=== PATIENT | female | born 1980 | race Caucasian/White ===

== ENCOUNTER 2024-11-15 13:26 | Emergency (ER) | payer MEDICAID ==
[~2024-11-15] VITALS: Ht 152.4 cm; Wt 113.5 kg
[2024-11-15 13:30] VITALS: TEMP 97.8
[2024-11-15 14:07] LABS: BILIRUBIN,URINE NEGATIVE (Neg); CLARITY,URINE CLEAR (Clear); COLOR,URINE YELLOW (Yellow); GLUCOSE, URINE NEGATIVE (Neg); KETONES,URINE NEGATIVE (Neg); LEUKOCYTE ESTERASE ,URINE SMALL (Neg); NITRITES, URINE NEGATIVE (Neg); OCCULT BLOOD,URINE NEGATIVE (Neg); PROTEIN,URINE NEGATIVE (Neg)
[2024-11-15 14:09] LABS: URINE HCG NEGATIVE (NEG)
[2024-11-15 14:24] LABS: UA COLLECTION TYPE CLN CATCH MIDSTREAM
[2024-11-15 14:25] LABS: BACTERIA,URINE FEW /HPF (Neg); MUCUS STRANDS FEW /LPF (Neg); RBC,URINE NONE SEEN /HPF (0-2); SQUAMOUS EPITHELIAL CELL,UR MODERATE /LPF (FEW); WBC,URINE 0-4 /HPF (0-4)
[2024-11-15 14:49] LABS: ALANINE AMINOTRANSFERASE 63 U/L (12-78); ALBUMIN 3.3 G/DL (3.4-5.0); ALBUMIN/GLOBULIN RATIO 0.9 (1.1-1.5); ALKALINE PHOSPHATASE 65 IU/L (46-116); ANION GAP 4 (8-16); ASPARTATE AMINO TRANSFERASE 40 U/L (10-37); BILIRUBIN,TOTAL 0.3 MG/DL (0.1-1.0); BLOOD UREA NITROGEN 13 MG/DL (7-18); BUN/CREATININE RATIO 16.5 (10.0-20.0); CALCIUM 8.6 MG/DL (8.5-10.1); CHLORIDE 102 MMOL/L (99-107); CREATININE 0.79 MG/DL (0.40-0.90); GLUCOSE 112 MG/DL (70-104); LIPASE 33 U/L (16-77); POTASSIUM 4.2 MMOL/L (3.5-5.1); SODIUM 137 MMOL/L (135-145); TOTAL CARBON DIOXIDE 30.9 MMOL/L (24-32); eCRCL 65 ML/MIN; eGFR 79 ML/MIN
[2024-11-15] MEDS: normal saline 1000ml 1,000 ML IV ONE (14:51)
[2024-11-15] MEDS: ketorolac trometh 30MG/ML vial 30 MG/ML VIAL IV ONE (14:52)
[2024-11-15] MEDS: ondansetron/PF 4mg/2ml inj IV ONE (14:52)
[2024-11-15] MEDS: HYDROcodone/acetaminophen 5mg/325mg tablet PO ONE (14:52)
[2024-11-15 15:11] LABS: BASOPHILS % (AUTO) 0.3 % (0-1); EOSINOPHILS # (AUTO) 0.3 X10'3 (0-0.9); EOSINOPHILS % (AUTO) 2.8 % (0-6); HEMATOCRIT 46.2 % (35.0-45.0); HEMOGLOBIN 15.4 g/dl (12.0-16.0); LYMPHOCYTES # (AUTO) 1.7 X10'3 (1.1-4.8); LYMPHOCYTES % (AUTO) 17.1 % (21-51); MEAN CORPUSCULAR HGB CONC 33.2 g/dL (33.0-36.5); MEAN CORPUSCULAR VOLUME 90.4 FL (78-98); MEAN PLATELET VOLUME 8.1 FL (7.4-10.4); MONOCYTES # (AUTO) 0.9 X10'3 (0-0.9); MONOCYTES % (AUTO) 9.6 % (2-12); NEUTROPHILS # (AUTO) 6.8 X10'3 (1.8-7.7); NEUTROPHILS % (AUTO) 70.2 % (42-75); PLATELET COUNT 232 X10'3 (140-440); RED BLOOD COUNT 5.11 X10'6 (4.20-5.60); RED CELL DISTRIBUTION WIDTH 15.3 % (11.5-14.5); WHITE BLOOD COUNT 9.6 X10'3 (4.5-11.0)
[2024-11-15 15:33] LABS: URINE AMPHETAMINE SCREEN NEGATIVE (Neg); URINE BARBITUATE SCREEN NEGATIVE (Neg); URINE BENZODIAZEPINES SCREEN NEGATIVE (Neg); URINE CANNABINOID SCREEN NEGATIVE (Neg); URINE COCAINE SCREEN NEGATIVE (Neg); URINE METHADONE SCREEN NEGATIVE (Neg); URINE OPIATE SCREEN NEGATIVE (Neg); URINE PHENCYCLIDINE SCREEN NEGATIVE (Neg)
[2024-11-15] MEDS ORDERED: CefTRIAXone 2gm/D5W 50ml BAG 50 ML IV ONE (16:10)
[2024-11-15] MEDS ORDERED: CEPH-585 PO (16:31)
[2024-11-15] MEDS: CefTRIAXone 1000mg IM Kit (w/lidocaine diluent) IM ONE (16:37)
[2024-11-15 16:48] VITALS: BP 118/81; PULSE 80; RESP 18; O2SAT 96
== END 2024-11-15 16:49 | disposition home or self-care (01) ==
LOC: ER 13:27
DX: N39.0 Urinary tract infection, site not specified (principal); R10.84 Generalized abdominal pain; R11.0 Nausea; F15.90 Other stimulant use, unspecified, uncomplicated
CPT/HCPCS: 36415; 76700; 80053; 80305; 81001; 81025; 83690; 85025; 87088; 96361; 96372; 96374; 96375; 99285; J0696; J1885; J2405; J7030

== ENCOUNTER 2025-01-13 19:32 | Emergency (ER) | payer MEDICAID ==
[~2025-01-13] VITALS: Ht 152.4 cm; Wt 109.1 kg
[2025-01-13] MEDS: acetaminophen 325mg tablet PO ONE (20:30)
[2025-01-13 20:45] LABS: BILIRUBIN,URINE NEGATIVE (Neg); CLARITY,URINE CLEAR (Clear); COLOR,URINE YELLOW (Yellow); GLUCOSE, URINE NEGATIVE (Neg); KETONES,URINE NEGATIVE (Neg); LEUKOCYTE ESTERASE ,URINE NEGATIVE (Neg); NITRITES, URINE NEGATIVE (Neg); OCCULT BLOOD,URINE NEGATIVE (Neg); PROTEIN,URINE NEGATIVE (Neg); UROBILINOGEN,URINE 0.2 E.U/dL (0.2-1.0)
[2025-01-13 20:46] LABS: UA COLLECTION TYPE CLN CATCH MIDSTREAM
[2025-01-13 21:38] LABS: BASOPHILS % (AUTO) 0.3 % (0-1); EOSINOPHILS # (AUTO) 0.1 X10'3 (0-0.9); EOSINOPHILS % (AUTO) 0.9 % (0-6); HEMATOCRIT 43.4 % (35.0-45.0); HEMOGLOBIN 14.6 g/dl (12.0-16.0); LYMPHOCYTES # (AUTO) 1.7 X10'3 (1.1-4.8); LYMPHOCYTES % (AUTO) 11.9 % (21-51); MEAN CORPUSCULAR HEMOGLOBIN 29.9 PG (27.0-31.0); MEAN CORPUSCULAR HGB CONC 33.7 g/dL (33.0-36.5); MEAN CORPUSCULAR VOLUME 88.8 FL (78-98); MEAN PLATELET VOLUME 8.4 FL (7.4-10.4); MONOCYTES # (AUTO) 0.8 X10'3 (0-0.9); MONOCYTES % (AUTO) 5.6 % (2-12); NEUTROPHILS # (AUTO) 11.3 X10'3 (1.8-7.7); NEUTROPHILS % (AUTO) 81.3 % (42-75); PLATELET COUNT 272 X10'3 (140-440); RED BLOOD COUNT 4.89 X10'6 (4.20-5.60); RED CELL DISTRIBUTION WIDTH 15.5 % (11.5-14.5); WHITE BLOOD COUNT 13.8 X10'3 (4.5-11.0)
[2025-01-13 21:51] LABS: ALANINE AMINOTRANSFERASE 87 U/L (12-78); ALBUMIN 3.5 G/DL (3.4-5.0); ALBUMIN/GLOBULIN RATIO 0.9 (1.1-1.5); ALKALINE PHOSPHATASE 72 IU/L (46-116); ANION GAP 8 (8-16); ASPARTATE AMINO TRANSFERASE 33 U/L (10-37); BILIRUBIN,TOTAL 0.4 MG/DL (0.1-1.0); BLOOD UREA NITROGEN 9 MG/DL (7-18); BUN/CREATININE RATIO 10.7 (10.0-20.0); CALCIUM 8.7 MG/DL (8.5-10.1); CHLORIDE 105 MMOL/L (99-107); CREATININE 0.84 MG/DL (0.40-0.90); GLUCOSE 102 MG/DL (70-104); POTASSIUM 3.8 MMOL/L (3.5-5.1); SODIUM 139 MMOL/L (135-145); TOTAL CARBON DIOXIDE 26.2 MMOL/L (24-32); TOTAL PROTEIN 7.2 G/DL (6.4-8.2); eCRCL 61 ML/MIN; eGFR 73 ML/MIN
[2025-01-13] MEDS ORDERED: CEPH-585 PO (22:56)
[2025-01-13] MEDS: cephalexin 250mg capsule PO ONE (23:16)
[2025-01-13 23:18] VITALS: BP 107/61; PULSE 88; RESP 16; TEMP 98; O2SAT 100
== END 2025-01-13 23:21 | disposition home or self-care (01) ==
LOC: ER 19:33
DX: R50.9 Fever, unspecified (principal); L97.518 Non-pressure chronic ulcer of other part of right foot with other specified severity; L03.115 Cellulitis of right lower limb; Z20.822 Contact with and (suspected) exposure to COVID-19
CPT/HCPCS: 36415; 80053; 81003; 84145; 85025; 87811; 99283

== ENCOUNTER 2025-03-04 10:26 | Outpatient (CLI) | payer MEDICAID ==
--- NOTE | 2025-03-04 12:15 | RADIOLOGY REPORT ---
EXAM: MR MRI LOWER EXTREMITY RIGHT knee INDICATION: PAIN IN RIGHT KNEE TECHNIQUE: Multiplanar and multisequence MR imaging of the right knee was performed in the absence of gadolinium contrast. COMPARISON: None FINDINGS: The medial meniscus is intact. Lateral meniscus shows absent body and anterior horn. There is thinning of the hyaline cartilage surf aces of the overlying lateral femoral condyle and underlying lateral tibial plateau Posterior cruciate ligament morphologically normal. Anterior cruciate ligament is frayed in appearan ce and increased in signal intensity probably due to prior tear with internal mucinous degenerative s ignal Collateral ligaments intact Quadriceps and patellar tendons intact Trace joint effusion Hyaline cartilage surfaces covering the patellofemoral joint thin with lateral subluxation. IMPRESSION: 1. Absence of visualization of the body and anterior horn of the lateral meniscus. This is either pos tsurgical or due to a degenerative tear. There is a grade 3 chondromalacia of the overlying lateral f emoral condyle and underlying lateral tibial plateau 2. Degenerative tear involving the anterior cruciate ligament probably old 3. 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
== END 2025-03-04 23:59 | disposition home or self-care (01) ==
LOC: MRI 10:26
PROVIDERS: ATTEND Family Medicine
DX: M94.261 Chondromalacia, right knee (principal); M25.561 Pain in right knee
CPT/HCPCS: 73721

== ENCOUNTER 2025-03-20 22:02 | Emergency (ER) | payer MEDICAID ==
[~2025-03-20] VITALS: Ht 152.4 cm; Wt 235.0 kg
[2025-03-20 22:07] VITALS: TEMP 98.1
--- NOTE | 2025-03-20 22:13 | ELECTROCARDIOGRAPH REPORT ---
[facility] Test Date: 2025-03-20 Test Time: 22:11:09 Pat Name: BENITA BOOTHE Department: [facility]- Patient ID: [facility]-[id number] Room: Gender: F Instructor Pilot: : 1980 Requested By: TOO GOODEN Order Number: [id number] Reading MD: Dr. Too Gooden Measurements Intervals [place] Rate: 81 P: 41 PA: 158 QRS: 6 QRSD: 83 T: 41 QT: 362 QTc: 421 Interpretive Statements Sinus rhythm Probable left atrial enlargement Baseline wander in lead(s) II Electronically Signed On 03-21-2025 0:41:[address] Too Gooden Please click the below link to view image of tracing.
[2025-03-20 22:18] VITALS: BP 118/74
[2025-03-20 22:41] LABS: BASOPHILS # (AUTO) 0.1 X10'3 (0-0.2); EOSINOPHILS # (AUTO) 0.4 X10'3 (0-0.9); EOSINOPHILS % (AUTO) 4.1 % (0-6); HEMATOCRIT 41.7 % (35.0-45.0); HEMOGLOBIN 14.3 g/dl (12.0-16.0); LYMPHOCYTES % (AUTO) 32.4 % (21-51); MEAN CORPUSCULAR HEMOGLOBIN 31.7 PG (27.0-31.0); MEAN CORPUSCULAR HGB CONC 34.4 g/dL (33.0-36.5); MEAN CORPUSCULAR VOLUME 92.3 FL (78-98); MEAN PLATELET VOLUME 8.9 FL (7.4-10.4); MONOCYTES # (AUTO) 0.6 X10'3 (0-0.9); MONOCYTES % (AUTO) 6.9 % (2-12); NEUTROPHILS # (AUTO) 5.2 X10'3 (1.8-7.7); NEUTROPHILS % (AUTO) 55.6 % (42-75); PLATELET COUNT 239 X10'3 (140-440); RED BLOOD COUNT 4.51 X10'6 (4.20-5.60); RED CELL DISTRIBUTION WIDTH 14.8 % (11.5-14.5); WHITE BLOOD COUNT 9.3 X10'3 (4.5-11.0)
[2025-03-20 23:05] LABS: ALBUMIN 3.5 G/DL (3.4-5.0); ANION GAP 10 (8-16); BLOOD UREA NITROGEN 13 MG/DL (7-18); BUN/CREATININE RATIO 12.4 (10.0-20.0); CALCIUM 8.6 MG/DL (8.5-10.1); CHLORIDE 106 MMOL/L (99-107); CREATININE 1.05 MG/DL (0.40-0.90); GLUCOSE 98 MG/DL (70-104); POTASSIUM 3.4 MMOL/L (3.5-5.1); PRO BRAIN NATRIURETIC PEPTIDE 42 PG/ML (0-125); SODIUM 141 MMOL/L (135-145); TOTAL CARBON DIOXIDE 24.6 MMOL/L (24-32); eCRCL 49 ML/MIN; eGFR 57 ML/MIN
[2025-03-20] MEDS: ketorolac trometh 30MG/ML vial 30 MG/ML VIAL IM ONE (23:10)
--- NOTE | 2025-03-20 23:29 | Physician Documentation ---
History of Present Illness ~ Chief Complaint: Chest Pain Stated Complaint: POSSIBLE KIDNEY/CHEST PAIN Time Seen by MD: 22:20 Primary Medical Doctor: none Mode of Arrival: Ambulatory HPI 44-year-old female presents to the ED with a complaint of left chest pain and left back pain with the acute onset tonight. Denies any injury reports cigarette smoking. Denies any nausea vomiting or shortness of breath. Denies any jaw pain or any other associated cardiac problem. Denies any history of cardiac pathology Day of Onset: Mar 20, 2025 Tetanus within 5 Years?: Yes Allergies: Uncoded Allergies: PENICILLIN (Allergy, Unknown, throat closes, 11/15/24) Active Prescriptions See Medication Reconciliation Form. Review of Systems All Other Systems at this time: Reviewed and Negative ROS As stated above in the HPI, otherwise all systems are reviewed and negative. Physical Exam Vital Signs: Temperature: 98.1, Source: Oral, Heart Rate: 81, Respiratory Rate: 16, BP: 118/74, Pulse Oximetry: 99, Weight: 235.000 Physical Exam General: Alert, no apparent distress. Respiratory: Lungs clear, no respiratory distress. Chest: No accessory muscle use. Clear to the left intercostal is be a palpation Cardiovascular: Regular rate and rhythm, no murmurs. Psychiatric: Normal mood and affect. Skin: Normal color, warm and dry. No edema, no ecchymosis. Progress Results/Orders Results/Orders Completed Orders - CAIN SANCHEZ NP Ketorolac Trometh 30mg/Ml Vial (Toradol (03/20/25 22:50) Medications Received in ER Medications (Trade) Dose Ordered Sig/Jorge Luis Route PRN Reason Start Time Stop Time Status Last Admin Dose Admin (Toradol inj. 30mg/ml) 30 mg ONCE ONCE IM 03/20/25 22:50 03/20/25 22:51 DC 03/20/25 23:10 30 MG Vital Signs 03/20/25 03/20/25 03/20/25 03/20/25 22:07 22:11 22:18 23:10 Temp 98.1 Pulse 84 81 Resp 16 16 18 16 B/P (MAP) 144/80 118/74 (89) Pulse Ox 99 99 Laboratory Tests Test 03/20/25 22:28 White Blood Count 9.3 Red Blood Count 4.51 Hemoglobin 14.3 Hematocrit 41.7 Mean Corpuscular Volume 92.3 Mean Corpuscular Hemoglobin 31.7 H Mean Corpuscular Hemoglobin Concent 34.4 Red Cell Distribution Width 14.8 H Platelet Count 239 Mean Platelet Volume 8.9 Neutrophils (%) (Auto) 55.6 Lymphocytes (%) (Auto) 32.4 Monocytes (%) (Auto) 6.9 Eosinophils (%) (Auto) 4.1 Basophils (%) (Auto) 1.0 Neutrophils # (Auto) 5.2 Lymphocytes # (Auto) 3.0 Monocytes # (Auto) 0.6 Eosinophils # (Auto) 0.4 Basophils # (Auto) 0.1 CBC Comment Sodium Level 141 Potassium Level 3.4 L Chloride Level 106 Carbon Dioxide Level 24.6 Anion Gap 10 Blood Urea Nitrogen 13 Creatinine 1.05 H Estimated GFR/1.73 m2 57 BUN/Creatinine Ratio 12.4 Glucose Level 98 Calcium Level 8.6 Troponin I High Sensitivity 4 Pro-B-Type Natriuretic Peptide 42 Albumin 3.5 Chemistry Comments Medical Decision Making Findings After further discussion with the patient and Toradol administration she while reported improved symptoms overall. I discussed her the importance of smoking cessation.. I do not see any signs of cardiac events at this time. I do not recommend that she follow up in the outpatient setting for further evaluation Differential Dx:Considerations: Include: Chest wall contusion, Flail chest, Myocardial contusion, Pneumothorax, Pulmonary contusion, Rib fracture, Renal contusion, Splenic fracture, Tension pneumothorax, Other Departure Disposition: 01 HOME / SELF CARE / HOMELESS Impression: Primary Impression: Costochondral chest pain Condition: Improved Discharge Instructions: Nonspecific Chest Pain, Adult, Costochondritis Referrals: NO PRIMARY CARE PROVIDER (PCP) Education Educated: Patient Educated regarding: diagnosis Signature Scribe Signature: f Attestation: Scribed for Cain Sanchez Housing Quality Standard Inspector by Cain Shelley NP . 03/20/25 23:41 CAIN SANCHEZ NP Mar 20, 2025 23:29
[2025-03-20 23:41] VITALS: PULSE 89; RESP 17; O2SAT 98
--- NOTE | 2025-03-20 23:43 | RADIOLOGY REPORT ---
Procedure: DI CHEST,SINGLE VIEW 03/20/2025 11:13 PM Indication: CP Comparison: None TECHNIQUE: DI CHEST,SINGLE VIEW FINDINGS/IMPRESSION: Mild prominence of the interstitial markings. Borderline appearance of the cardiomediastinal silhouet te, likely accentuated by technique. No pleural effusion or pneumothorax. No acute osseous abnormalit y.
== END 2025-03-20 23:44 | disposition home or self-care (01) ==
LOC: ER 22:03
DX: R07.1 Chest pain on breathing (principal); M54.9 Dorsalgia, unspecified; R06.02 Shortness of breath
CPT/HCPCS: 36415; 71045; 80048; 83880; 84484; 85025; 93005; 96372; 99285; J1885

== ENCOUNTER 2025-05-03 12:40 | Emergency (ER) | payer MEDICAID ==
[~2025-05-03] VITALS: Ht 152.4 cm; Wt 103.2 kg
[2025-05-03 12:43] VITALS: BP 136/86; PULSE 87; RESP 16; TEMP 98.5; O2SAT 95
--- NOTE | 2025-05-03 15:13 | Physician Documentation ---
History of Present Illness ~ Chief Complaint: Foot pain Stated Complaint: FOOT PAIN/ULCERS Time Seen by MD: 14:23 Primary Medical Doctor: none HPI Patient is a 44-year-old female that reports in the emergency department for evaluation of rash to her right lower extremity on the medial aspect and more significantly swelling and pain to her right lower extremity x1 week. Patient reports that the pain is worse with a rocking and alleviated with rest. Patient reports being prediabetic. Significant past medical history reported at this time. Tetanus witin 5 years: Yes Medication Reconciliation Allergies: Uncoded Allergies: PENICILLIN (Allergy, Unknown, throat closes, 11/15/24) Review of Systems ROS As stated above in the HPI, otherwise all systems are reviewed and negative. Physical Exam Vital Signs: Temperature: 98.5, Source: Temporal, Heart Rate: 87, Respiratory Rate: 16, BP: 136/86, Pulse Oximetry: 95, Weight: 103.180 Oxygen Flow Rate: 0 Physical Exam VITALS: Reviewed and as above. GENERAL: Alert, no apparent distress. HEENT: Normocephalic, atraumatic, PERRL, EOMI, dry mucosa, no erythema RESPIRATORY: Lungs clear, normal breath sounds, no respiratory distress. CHEST: No accessory muscle use, no retractions CV: Regular rate, rhythm, no edema, no murmur, No: JVD GI: Soft, non-tender, bowels sounds present, no rebound, guarding, or rigidity BACK: No CVA tenderness, or swelling MUSCULOSKELETAL No deformities, no edema, pain with examination and flextion or jim right lower extremity. SKIN: Warm and dry, no rash, rash noted to the medial aspect of the right foot NEURO: Oriented x4, No motor or sensory deficit PSYCH: Normal mood and affect, no agitation Progress Results/Orders Results/Orders Orders - CONSUELO PRESSLEYP Vl Venous (05/03/25 17:06) Vl Arterial (05/03/25 17:06) Cult Urine + [address] (05/03/25 17:53) Completed Orders - CONSUELO PRESSLEY [place] [employer] Cbc/Diff (05/03/25 15:54) D-Dimer (05/03/25 15:54) Hcg Serum Ql (05/03/25 15:54) CMP (05/03/25 16:55) Vl Venous (05/03/25 17:06) Vl Arterial (05/03/25 17:06) Ua W/Microscopic, Cult If Ind (05/03/25 17:25) Vital Signs 05/03/25 12:43 Temp 98.5 Pulse 87 Resp 16 B/P (MAP) 136/86 Pulse Ox 95 O2 Flow Rate 0 Laboratory Tests Test 05/03/25 16:31 05/03/25 17:06 05/03/25 17:25 D-Dimer 0.22 D-Dimer Comment Human Chorionic Gonadotropin, Qual Negative White Blood Count 8.5 Red Blood Count 5.17 Hemoglobin 16.3 H Hematocrit 48.2 H Mean Corpuscular Volume 93.2 Mean Corpuscular Hemoglobin 31.5 H Mean Corpuscular Hemoglobin Concent 33.8 Red Cell Distribution Width 13.5 Platelet Count 242 Mean Platelet Volume 8.6 Neutrophils (%) (Auto) 63.3 Lymphocytes (%) (Auto) 26.4 Monocytes (%) (Auto) 6.2 Eosinophils (%) (Auto) 3.5 Basophils (%) (Auto) 0.6 Neutrophils # (Auto) 5.4 Lymphocytes # (Auto) 2.2 Monocytes # (Auto) 0.5 Eosinophils # (Auto) 0.3 Basophils # (Auto) 0.1 CBC Comment Sodium Level 139 Potassium Level 3.9 Chloride Level 104 Carbon Dioxide Level 28.7 Anion Gap 6 L Blood Urea Nitrogen 8 Creatinine 0.93 H Estimated GFR/1.73 m2 65 BUN/Creatinine Ratio 8.6 L Glucose Level 78 Calcium Level 9.1 Total Bilirubin 0.3 Aspartate Amino Transf (AST/SGOT) 17 Alanine Aminotransferase (ALT/SGPT) 20 Alkaline Phosphatase 81 Total Protein 8.3 H Albumin 4.0 Globulin 4.3 Albumin/Globulin Ratio 0.9 L Chemistry Comments Urine Specimen Description Cln catch midstream Urine Color Yellow Urine Clarity Clear Urine pH 6.0 Urine Specific [place] 1.020 Urine Protein Negative Urine Glucose (UA) Negative Urine Ketones Negative Urine Occult Blood Negative Urine Nitrite Negative Urine Bilirubin Negative Urine Urobilinogen 0.2 Urine Leukocyte Esterase Trace H Urine RBC 0-2 Urine WBC 0-4 Urine Squamous Epithelial Cells Few Urine Bacteria Few Urine Mucus None seen Urine Culture Indicated Indicated Volume Urine Centrifuged 10 ml Urine Comment Medical Decision Making Findings He recent rash to the medial aspect of the right foot. For pain and swelling to the right lower extremity times one week. General Diff Dx:Considerations: Include: Abrasion, Contusion, Fracture, Hematoma, Laceration, Malunion, Neurovascular injury, Open fracture, Sprain, Ulcer, Other Departure Impression: Primary Impression: Rash Additional Impressions: Fungal infection Fungal infection of foot Departure Forms: Excuse form Work or School Excused From: Work Excuse beginning now through the following date: May 05, 2025 May Return but still avoid physical Activity from now until: May 05, 2025 Additional Instructions: Please excuse the patient from work for Sunday to return to work on Sunday. Referrals: NO PRIMARY CARE PROVIDER (PCP) Prescriptions Clotrimazole/Betamet Diprop Cream* (Lotrisone Cream*) 15 Gm Tube 1 APPLIC TP BID for 10 Days, #1 EACH Prov: CONSUELO PRESSLEY 05/03/25 Education Educated: Patient Educated regarding: diagnosis, treatment, need for follow up Signature Scribe Signature: A Attestation: Scribed for Consuelo Pressley by JUSTIN Everett . 05/03/25 18:24 CONSUELO PRESSLEY May 03, 2025 15:13
[2025-05-03 16:56] LABS: HCG SERUM QL NEGATIVE
[2025-05-03 17:21] LABS: MEAN PLATELET VOLUME 8.6 FL (7.4-10.4); RED CELL DISTRIBUTION WIDTH 13.5 % (11.5-14.5)
[2025-05-03 17:31] LABS: CREATININE 0.93 MG/DL (0.40-0.90); TOTAL CARBON DIOXIDE 28.7 MMOL/L (24-32); eCRCL 55 ML/MIN; eGFR 65 ML/MIN
[2025-05-03 17:40] LABS: LEUKOCYTE ESTERASE ,URINE TRACE (Neg); NITRITES, URINE NEGATIVE (Neg); OCCULT BLOOD,URINE NEGATIVE (Neg)
[2025-05-03 17:41] LABS: UA COLLECTION TYPE CLN CATCH MIDSTREAM
[2025-05-03 17:53] LABS: MUCUS STRANDS NONE SEEN /LPF (Neg); SQUAMOUS EPITHELIAL CELL,UR FEW /LPF (FEW)
[2025-05-03] MEDS ORDERED: CLOT15CR73 TP (18:19)
--- NOTE | 2025-05-03 18:44 | VASCULAR REPORT ---
RIGHT LOWER EXTREMITY ARTERIAL VASCULAR ULTRASOUND CLINICAL HISTORY: Right lower extremity pain. Nonhealing foot wound. COMPARISON: None TECHNIQUE: Real-time high-resolution grayscale and color Doppler flow imaging with pulsed duplex sono graphy is performed in the lower extremity arterial system with imaging of the femoral-popliteal syst em and interrogation of the dorsalis pedis and posterior tibial arteries at the level of the ankle. FINDINGS: Imaging of the right leg shows no significant atherosclerotic disease and no hemodynamically signific ant stenosis. Peak systolic flow velocities and wave forms are satisfactory throughout the interroga krish segments. IMPRESSION: No hemodynamically significant stenoses or occlusions identified.
--- NOTE | 2025-05-03 18:52 | VASCULAR REPORT ---
CLINICAL HISTORY: Right lower extremity edema and pain TECHNIQUE: Color and duplex doppler imaging of the right lower extremity veins was performed. Vessel compression if possible was also performed. WID: COMPARISON: None FINDINGS: Contralateral left common femoral vein: Normal flow and phasicity. Right common femoral vein: Normal compressibility and flow. Right femoral vein: Normal compressibility and flow. Right popliteal vein: Normal compressibility and flow. Proximal calf veins are normally compressible. IMPRESSION: NO SONOGRAPHIC EVIDENCE FOR DEEP VENOUS THROMBOSIS IN THE RIGHT LOWER EXTREMITY VEINS.
== END 2025-05-03 19:07 | disposition home or self-care (01) ==
LOC: ER 12:42
DX: B35.3 Tinea pedis (principal)
CPT/HCPCS: 36415; 80053; 81001; 84703; 85025; 85379; 87088; 93926; 93971; 99284; A6449

== ENCOUNTER 2025-05-17 18:38 | Emergency (ER) | payer MEDICAID ==
[~2025-05-17] VITALS: Ht 154.9 cm; Wt 100.2 kg
--- NOTE | 2025-05-17 18:53 | Physician Documentation ---
History of Present Illness ~ Chief Complaint: Diarrhea Stated Complaint: NAUSEA/DIARRHEA Time Seen by MD: 18:49 Primary Medical Doctor: none HPI 45-year-old female that presents to the emergency department for evaluation of nausea vomiting diarrhea x2 days. Patient reports that they were eating dinner last night approximately 30 minutes after dinner developed nausea vomiting. Patient reports he has a nausea vomiting has subsided but diarrhea has persisted. Patient denies any other concerns at this time. Medication Reconciliation Allergies: Uncoded Allergies: PENICILLIN (Allergy, Unknown, throat closes, 11/15/24) Discontinued Medications Clotrimazole/Betamet Diprop Cream* (Lotrisone Cream*), 1 APPLIC TP BID Discontinued Reason: Auto Discontinued Review of Systems ROS As stated above in the HPI, otherwise all systems are reviewed and negative. Physical Exam Vital Signs: Temperature: 97.8, Source: Oral, Heart Rate: 89, Respiratory Rate: 16, BP: 114/79, Pulse Oximetry: 97, Weight: 100.200 Oxygen Flow Rate: 0 Physical Exam VITALS: Reviewed and as above. GENERAL: Alert, no apparent distress. HEENT: Normocephalic, atraumatic, PERRL, EOMI, dry mucosa, no erythema RESPIRATORY: Lungs clear, normal breath sounds, no respiratory distress. CHEST: No accessory muscle use, no retractions CV: Regular rate, rhythm, no edema, no murmur, No: JVD GI: Soft, non-tender, bowels sounds present, no rebound, guarding, or rigidity BACK: No CVA tenderness, or swelling MUSCULOSKELETAL No deformities, no edema SKIN: Warm and dry, no rash NEURO: Oriented x4, No motor or sensory deficit PSYCH: Normal mood and affect, no agitation Progress Results/Orders Results/Orders Orders - CONSUELO PRESSLEY [employer] MANAGER Potassium Cl 20meq/15ml Oral (Potassium (05/17/25 20:25) Vital Signs 05/17/25 05/17/25 05/17/25 18:41 19:39 19:40 Temp 97.8 97.8 Pulse 89 88 Resp 16 16 16 B/P (MAP) 114/79 119/76 (90) Pulse Ox 97 96 O2 Flow Rate 0 0 Laboratory Tests Test 05/17/25 18:40 05/17/25 19:08 Urine Specimen Description Cln catch midstream Urine Color Yellow Urine Clarity Clear Urine pH 5.5 Urine Specific [place] >=1.030 Urine Protein Negative Urine Glucose (UA) Negative Urine Ketones Negative Urine Occult Blood Negative Urine Nitrite Negative Urine Bilirubin Negative Urine Urobilinogen 0.2 Urine Leukocyte Esterase Negative Urine Culture Indicated Not ind Volume Urine Centrifuged 10 ml Urine Comment White Blood Count 10.7 Red Blood Count 4.97 Hemoglobin 16.0 Hematocrit 46.8 H Mean Corpuscular Volume 94.2 Mean Corpuscular Hemoglobin 32.1 H Mean Corpuscular Hemoglobin Concent 34.1 Red Cell Distribution Width 13.5 Platelet Count 272 Mean Platelet Volume 8.5 Neutrophils (%) (Auto) 62.8 Lymphocytes (%) (Auto) 28.4 Monocytes (%) (Auto) 5.3 Eosinophils (%) (Auto) 2.9 Basophils (%) (Auto) 0.6 Neutrophils # (Auto) 6.7 Lymphocytes # (Auto) 3.0 Monocytes # (Auto) 0.6 Eosinophils # (Auto) 0.3 Basophils # (Auto) 0.1 CBC Comment Sodium Level 138 Potassium Level 3.2 L Chloride Level 106 Carbon Dioxide Level 19.3 L Anion Gap 13 Blood Urea Nitrogen 10 Creatinine 1.21 H Estimated GFR/1.73 m2 48 BUN/Creatinine Ratio 8.3 L Glucose Level 136 H Calcium Level 8.7 Total Bilirubin 0.3 Aspartate Amino Transf (AST/SGOT) 14 Alanine Aminotransferase (ALT/SGPT) 19 Alkaline Phosphatase 63 Total Protein 7.9 Albumin 3.9 Globulin 4.0 Albumin/Globulin Ratio 1.0 L Lipase 74 Chemistry Comments Medical Decision Making Findings This patient presents with non bloody diarrhea consistent with likely viral enteritis. Doubt invasive bacteria causing diarrhea such as C diff (no recent antibiotics), shiga toxin (non bloody). No recent travel. Patient is not immunocompromised. Diarrhea is non bloody so less likely inflammatory bowel disease. Given history, I have low suspicion for giardia or other parasites. C onsidered, but think unlikely, partial SBO, appendicitis, diverticulitis, other intraabdominal infection. Low suspicion for secondary causes of diarrhea such as hyperadrenergic state, pheo, adrenal crisis, thyrotoxicosis, or sepsis. Patient's potassium was slightly low at 3.1. Patient is a pronounced in his rib been repleted with 20 mEq of oral potassium. Patient will increase fluids. Suggested [id number] Imodium for continued diarrhea. Follow up with primary care provider. Strict return precautions will be provided. Departure Disposition: HOME / SELF CARE / HOMELESS Impression: Primary Impression: Diarrhea Additional Impression: Nausea Condition: Stable Discharge Instructions: Diarrhea, Adult Additional Instructions: This patient presents with non bloody diarrhea consistent with likely viral enteritis. Doubt invasive bacteria causing diarrhea such as C diff (no recent antibiotics), shiga toxin (non bloody). No recent travel. Patient is not immuno compromised. Diarrhea is non bloody so less likely inflammatory bowel disease. Given history, I have low suspicion for giardia or other parasites. Considered, but think unlikely, partial SBO, appendicitis, diverticulitis, other intraabdominal infection. Low suspicion for secondary causes of diarrhea such as hyperadrenergic state, pheo, adrenal crisis, thyrotoxicosis, or sepsis. Patient's potassium was slightly low at 3.1. Patient is a pronounced in his rib been repleted with 20 mEq of oral potassium. Patient will increase fluids. Suggested [id number] Imodium for continued diarrhea. Follow up with primary care provider. Return to the emergency department with any worsening or recurrent symptoms or any additional concerning symptoms that we discussed here today i.e. inability to keep down liquids persistent diarrhea that is not responsive to Imodium lightheadedness, lethargy, fever chills or any other concerning symptoms that we discussed here today. Departure Forms: Excuse form Work or School Excused From: Work Excuse beginning now through the following date: May 19, 2025 Referrals: NO PRIMARY CARE PROVIDER (PCP) Education Educated: Patient Educated regarding: diagnosis, treatment, need for follow up Signature Scribe Signature: A Attestation: Scribed for Consuelo Pressley by JUSTIN Everett . 05/17/25 20:29 CONSUELO PRESSLEY May 17, 2025 18:53
[2025-05-17 19:08] LABS: LEUKOCYTE ESTERASE ,URINE NEGATIVE (Neg); NITRITES, URINE NEGATIVE (Neg); OCCULT BLOOD,URINE NEGATIVE (Neg)
[2025-05-17 19:12] LABS: UA COLLECTION TYPE CLN CATCH MIDSTREAM
[2025-05-17 19:15] LABS: MEAN PLATELET VOLUME 8.5 FL (7.4-10.4); RED CELL DISTRIBUTION WIDTH 13.5 % (11.5-14.5)
[2025-05-17 19:36] LABS: CREATININE 1.21 MG/DL (0.40-0.90); TOTAL CARBON DIOXIDE 19.3 MMOL/L (24-32); eCRCL 44 ML/MIN; eGFR 48 ML/MIN
[2025-05-17 19:39] VITALS: BP 119/76; O2SAT 96
[2025-05-17] MEDS: POTASSIUM CHLORIDE 20 MEQ/15 ML oral solution PO SCH (20:41)
[2025-05-17 20:48] VITALS: PULSE 68; RESP 14; TEMP 97.8
== END 2025-05-17 20:50 | disposition home or self-care (01) ==
LOC: ER 18:38
DX: R19.7 Diarrhea, unspecified (principal); R11.0 Nausea
CPT/HCPCS: 36415; 80053; 81003; 83690; 85025; 99283